=== PATIENT | male | born 2005 | race Caucasian/White ===

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

== ENCOUNTER 2025-07-25 12:05 | Emergency (ER) | payer OTHER, SELFPAY ==
[2025-07-25 12:12] VITALS: BP 133/69; PULSE 88; RESP 18; TEMP 37; O2SAT 98
--- NOTE | 2025-07-25 12:26 | ED.URI ---
HPI - URI/Sore Throat General Chief Complaint: Upper Respiratory Infection Stated Complaint: Cough Time Seen by Provider: 07/25/25 12:22 Source: patient and RN notes reviewed Mode of arrival: ambulatory Limitations: no limitations History of Present Illness HPI Narrative: 20-year-old male presents with concern for one and half week history of cough, sore throat. He denies any current runny nose, stuffy nose, fever, body aches, chills, sweats. He has used cough drops. MD elicited complaint: cough and sore throat Related Data Allergies Allergy/AdvReac Type Severity Reaction Status Date / Time Penicillins Allergy Intermediate HIVES Verified 07/25/25 12:06 Review of Systems Review of Systems: CONSTITUTIONAL: Denies malaise, chills, sweats, or fever. EYES: Denies visual changes, redness, or discharge. ENT: Denies rhinorrhea, congestion, sinus pain, otalgia. Reports sore throat. CARDIOVASCULAR: Denies chest pain, palpitations, or edema. RESPIRATORY: Reports cough. Denies dyspnea. GASTROINTESTINAL: Denies abdominal pain, nausea, vomiting, diarrhea SKIN: Denies rash or itching. MUSCULOSKELETAL: Denies myalgia. NEUROLOGIC: Denies headache. All systems reviewed & are unremarkable except as noted in HPI and below PMFSH Comments At time of signature, agree with nursing past medical, surgical, social and family history. There is no relevant family history pertinent to the presenting complaint Exam Narrative: GENERAL: Well-appearing, well-nourished, and in no acute distress. HEAD: Normocephalic EYES: PERRLA, conjunctivae clear ENT: Nares clear. Mucous membranes moist. TM pearly werner with sharp light reflex bilaterally; no tragal tenderness. Oropharynx not erythematous without lesions. Tonsils not enlarged and without exudate, no drooling, no hoarseness, no trismus, uvula midline. NECK: Supple. No lymphadenopathy CHEST: Clear to auscultation, breath sounds equal. No wheezing, rhonchi, rales, or stridor. No respiratory distress, speaks in full sentences. Harsh cough noted HEART: Regular rate and rhythm. No murmur heard. SKIN: Warm, dry, no rash. NEURO: Alert and oriented x3. PSYCH: Normal mood and affect Course Course Level of Care: Express Care Visit Vital Signs Vital signs: Vital Signs Temperature 98.6 F 07/25/25 12:12 Pulse Rate 88 07/25/25 12:12 Respiratory Rate 18 07/25/25 12:12 Blood Pressure 133/69 07/25/25 12:12 Pulse Oximetry 98 07/25/25 12:12 Oxygen Delivery Room Air 07/25/25 12:12 Temperature 98.6 F 07/25/25 12:12 Pulse Rate 88 07/25/25 12:12 Respiratory Rate 18 07/25/25 12:12 Blood Pressure 133/69 07/25/25 12:12 Pulse Oximetry 98 07/25/25 12:12 Oxygen Delivery Room Air 07/25/25 12:12 MDM Differential Diagnosis Differential Diagnosis: I evaluated this patient in the [facility] care. History is obtained from patient who is an independent historian and physical exam was performed.? Available medical records were reviewed. ? Exam findings and relevant testing show no acute concerns or changes; patient is non-toxic appearing and is in no distress. ? Differential diagnosis considered: [place] virus, strep pharyngitis, allergic rhinitis, upper respiratory tract infection, sinusitis, rhinosinusitis, nasopharyngitis. viral pharyngitis, otitis media, otitis externa, pneumonia, bronchitis, viral cough syndrome, viral syndrome, and influenza. Differential diagnosis and treatment plan were discussed with the patient. Patient agrees with discussion and after shared medical decision making agrees with plan of care. All questions were answered to the patient's satisfaction. Patient is appropriate for outpatient treatment and follow-up. Discharge Plan Discharge Clinical Impression: Bronchitis Patient Disposition: Home Condition: Stable Instructions: Antibiotic Form, Acute Bronchitis (ED) Additional Instructions: Viral illness may last between 7-21 days; antibiotics do not cure viral illness and are NOT recommended at this time. Recommend antihistamine such as Benadryl at night time and Zyrtec or Nikki during the day Also, recommend symptomatic treatment includes: rest, fluids, and increase humidity of the air at home. Recommend Acetaminophen as directed on the bottle to reduce fever, pain, headache. Avoid smoking/second-hand smoke. Please schedule a follow-up visit with your personal physician for further evaluation and treatment within 3-5days. If your symptoms persist, change or worsen significantly before you can contact your personal physician then please, without delay, go to the emergency department for further evaluation. Patient Language: Urdu Prescriptions: New dextromethorphan-guaifenesin [Mucinex DM] 60-1,200 mg tablet extended release 12 hr 1 tablet PO Q12H Qty: 12 0RF prednisone 20 mg tablet 40 mg PO DAILY 5 Days Qty: 10 0RF Follow-up/Referrals: Rupali Sun MD [Primary Care Provider, Pediatrics] Time of Disposition: 12:30
--- OUTSIDE RECORDS SUMMARY | 2025-07-25 13:26 | XMS_ITS | Clinical Summary ---
Author Organization [facility] Address [facility] [place] [address] Care Team Providers Care Contact Representative Name Role Phone AsyaTyson Dora STARK Primary Care Provider [phone] Allergies Active Allergy Reactions Criticality Noted Date Comments Amoxicillin Rash Low 08/24/2023 Social History Tobacco Use Types Packs/Day Years Used Date Smoking Tobacco: Never Assessed Sex and Gender Information Value Date Recorded Sex Assigned at Not on file Legal Sex Male 11:14 PM CDT Gender Identity Not on file Sexual Orientation Not on file Last Filed Vital Signs Vital Sign Reading Time Taken Comments Blood Pressure 125/69 08/24/2023 10:25 PM [employer] Pulse 85 08/24/2023 10:25 PM [employer] Temperature 36.7 C (98 F) 08/24/2023 10:25 PM [employer] Respiratory Rate 20 08/24/2023 10:25 PM [employer] Oxygen Saturation 97% 08/24/2023 10:25 PM [employer] Inhaled Oxygen Concentration - - Weight 83.9 kg (185 lb) 08/24/2023 10:25 PM [employer] Height 170.2 cm (5' 7) 08/24/2023 10:25 PM [employer] Body Mass Index 28.98 08/24/2023 10:25 PM [employer] Plan of Treatment Health Maintenance Due Date Last Done Comments Annual Physical 02/21/2007 Hepatitis C 02/21/2022 DTaP, Tdap and Td Vaccines (7 - Td or Tdap) 06/11/2024 06/11/2014, 04/01/2009, 07/21/2005, Additional history exists COVID-19 Vaccine ( season) 2025 12/26/2020, 12/05/2020 Influenza Adult (#1) 2025 09/22/2017, 07/21/20 05 Hepatitis B Vaccines Completed 03/03/2005, 2004, 2004 Pneumococcal Vaccine: Pediatrics (0 to 5 Years) and At-Risk Patients (6 to 49 Years) Completed 03/03/2005, 2004, 2004, Additional history exists Hepatitis A Vaccines Completed 04/05/2018, 02/29/20 07 HPV Vaccines Completed 03/03/2021, 04/05/2018 Meningococcal Vaccine Completed 03/03/2021, 014 Meningococcal B Vaccine Completed 04/08/2021, 03/03 RSV Immunizations Under 20 Months Aged Out No longer eligible based on patient's age to complete this topic Care Teams Contact Representative Relationship Specialty Start Date End Date Tyson Sky DO [address] [facility] [address] [place] [address] PCP - General FAMILY PRACTICE 08/24/23
== END 2025-07-25 12:31 | disposition home or self-care (01) ==
PROVIDERS: Emergency Provider Nurse Practitioner; PCP Pediatrics
DX: J40 Bronchitis, not specified as acute or chronic (principal); Z86.16 Personal history of COVID-19
CPT/HCPCS: 99213; G0463